=== PATIENT | male | born 1940 | race Caucasian/White ===

== ENCOUNTER 2016-05-08 03:37 | Inpatient (IN) | payer OTHER, BC ==
[~2016-05-08] VITALS: Ht 190.5 cm; Wt 102.9 kg
[~2016-05-08 03:37] MED LIST: COUMADIN3 MG PO; COUMADIN5 MG PO; DOCUSATE SODIU100 MG PO; DUONEB 2.5-0.5 M3 ML PO; FLUORIDE PO; MILK OF MAGNESI10 ML PO; NASAL SPRAY30 M4 ALT NARES; OXYCODONE HCL5 MG PO; ROCEPHIN1000 MG IV; SALINE NASAL SP45 ML BOTH NARES; TRAMADOL HCL50 MG PO; ULTRAM50 MG PO; VANCOMYCIN HCL1 GM IV
[2016-05-08 04:38] LABS: HEMATOCRIT 49.5 % (38.0-50.0); MCH 31.1 PG (29.0-34.0); MCHC 34.1 G/DL (30.0-36.0); MCV 91.2 FL (86-99); MEAN PLAT.VOLUME 10.2 uM^3 (9.0-12.4); PLATELET COUNT 203 K/uL (156-360); RBC DIS.WIDTH-SD 43.2 % (39-53); RED BLOOD COUNT 5.43 M/uL (4.00-5.50)
[2016-05-08 04:49] LABS: CHLORIDE 105 mEq/L (99-109); POTASSIUM 4.1 mEq/L (3.7-5.4); SODIUM 136 mEq/L (136-147)
[2016-05-08 04:50] LABS: GLUCOSE 126 mg/dL (70-99)
[2016-05-08 04:52] LABS: ANION GAP 8 MEQ/L (2-14)
[2016-05-08 04:54] LABS: GFR ESTIMATE (CALCULATED) > 59 mL/min/
[2016-05-08 04:55] LABS: UREA NITROGEN (BUN) 18 mg/dL (9-23)
[2016-05-08 04:58] LABS: TROP-I INTERPRETATION NEGATIVE; TROPONIN-I < 0.01 ng/mL (0.0-0.30)
[2016-05-08 05:13] LABS: PTT 30.1 (25-32)
[2016-05-08 05:14] LABS: TOTAL BILIRUBIN 0.7 mg/dL (0.0-1.0)
[2016-05-08 05:15] LABS: ALKALINE PHOSPHATASE 59 IU/L (3-129)
[2016-05-08 05:18] LABS: DIRECT BILIRUBIN 0.4 mg/dL (0.0-0.3)
[2016-05-08 05:19] LABS: LIPASE 45 U/L (1.0-51.0)
[2016-05-08 05:23] LABS: INTER. NORMALIZED RATIO 1.2
[2016-05-08 07:13] LABS: BILIRUBIN NEGATIVE; BLOOD NEGATIVE; COLOR YELLOW ((YELLOW)); GLUCOSE (STRIP) NEGATIVE; KETONES TRACE; LEUKOCYTES NEGATIVE; NITRITE NEGATIVE; PROTEIN (STRIP) TRACE; SPECIFIC GRAVITY 1.027 (1.000-1.030)
[2016-05-08 07:14] LABS: ADD MIUA? NO; UCUL ADDED? NO
[2016-05-08] MEDS ORDERED: PROPRANOLOL HCL20 MG PO (07:50)
[2016-05-08 16:46] VITALS: BP 157/64
[2016-05-09 00:29] VITALS: BP 181/80
[2016-05-09 06:56] LABS: MEAN PLAT.VOLUME 11.4 uM^3 (9.0-12.4); PLATELET COUNT 231 K/uL (156-360)
[2016-05-09 07:12] LABS: HEMATOCRIT 49.3 % (38.0-50.0); MCH 31.1 PG (29.0-34.0); MCHC 32.9 G/DL (30.0-36.0); MCV 94.6 FL (86-99); RBC DIS.WIDTH-CV 13.4 % (11.8-14.6); RBC DIS.WIDTH-SD 46.3 % (39-53); RED BLOOD COUNT 5.21 M/uL (4.00-5.50); WHITE BLOOD COUNT 10.3 K/uL (4.1-10.2)
[2016-05-09 07:25] LABS: ANION GAP 12 MEQ/L (2-14); CHLORIDE 103 MEQ/L (99-109); GFR ESTIMATE (CALCULATED) > 59 mL/min/; GLUCOSE 101 mg/dL (70-99); POTASSIUM 4.3 MEQ/L (3.7-5.4); SAMPLE HEMOLYSIS CHECK 1; SAMPLE ICTERIC CHECK 0; SAMPLE LIPEMIA CHECK 0; SODIUM 138 MEQ/L (136-147); UREA NITROGEN (BUN) 18 mg/dL (9-23)
[2016-05-09 08:19] LABS: ABS NEUTROPHIL COUNT 5.97; PLAT.SUFFICIENCY ADEQUATE; USER ID STC
[2016-05-09 08:38] VITALS: BP 145/71
[2016-05-09 10:30] LABS: INTERNAL CONTROL VALID? YES
[2016-05-09 13:00] LABS: INFLUENZA A VIRAL ANTIGEN NEGATIVE; INFLUENZA B VIRAL ANTIGEN NEGATIVE
[2016-05-09 14:57] LABS: DELETE MACHINE DIFF? YES
[2016-05-09 16:29] VITALS: BP 146/79
[2016-05-09 23:01] VITALS: BP 148/79
[2016-05-10 06:09] LABS: EOSINOPHIL (%) 0.3 % (0-5); HEMATOCRIT 47.7 % (38.0-50.0); IMMATURE GRANULOCYTE (%) 0.4 % (0.0-0.7); LYMPHOCYTE COUNT 1.5 K/uL (1.0-2.8); MCHC 34.2 G/DL (30.0-36.0); MCV 93.5 FL (86-99); MEAN PLAT.VOLUME 11.3 uM^3 (9.0-12.4); MONOCYTE (%) 6.8 % (3-12); MONOCYTE COUNT 0.8 K/uL (0-0.8); NEUTROPHIL (%) 78.6 % (45-76); NEUTROPHIL COUNT 8.7 K/uL (1.8-6.4); PLATELET COUNT 240 K/uL (156-360); RBC DIS.WIDTH-CV 12.9 % (11.8-14.6); RBC DIS.WIDTH-SD 44.7 % (39-53); WHITE BLOOD COUNT 11.1 K/uL (4.1-10.2)
[2016-05-10 06:39] LABS: ANION GAP 9 MEQ/L (2-14); CHLORIDE 102 MEQ/L (99-109); GFR ESTIMATE (CALCULATED) > 59 mL/min/; GLUCOSE 121 mg/dL (70-99); POTASSIUM 3.9 MEQ/L (3.7-5.4); SAMPLE HEMOLYSIS CHECK 0; SAMPLE ICTERIC CHECK 0; SAMPLE LIPEMIA CHECK 0; SODIUM 137 MEQ/L (136-147); UREA NITROGEN (BUN) 21 mg/dL (9-23)
[2016-05-10 07:59] VITALS: BP 154/83
[2016-05-10 23:27] VITALS: BP 149/76
[2016-05-11 07:11] VITALS: BP 176/85
[2016-05-11] MEDS ORDERED: NICOTINE PATCH1 EAC2 TD (14:23)
[2016-05-11] MEDS ORDERED: DUONEB 2.5-0.5 M3 ML AEROSOL (14:23)
[2016-05-11] MEDS ORDERED: CEFTIN500 MG PO (14:23)
[2016-05-11 15:51] VITALS: BP 169/76
== END 2016-05-11 18:18 | DRG 190 ==
LOC: EME → EDBD 03:37 → EME 03:37 → EDOF 07:36 → 5EAST 07:36
PROVIDERS: Emergency Medicine; Internal Medicine
DX: J44.0 Chronic obstructive pulmonary disease with (acute) lower respiratory infection (principal); J15.9 Unspecified bacterial pneumonia; J44.1 Chronic obstructive pulmonary disease with (acute) exacerbation; J96.91 Respiratory failure, unspecified with hypoxia; E86.0 Dehydration; Z99.81 Dependence on supplemental oxygen; I10 Essential (primary) hypertension; G25.0 Essential tremor; F03.90 Unspecified dementia, unspecified severity, without behavioral disturbance, psychotic disturbance, mood disturbance, and anxiety; R26.2 Difficulty in walking, not elsewhere classified; M19.90 Unspecified osteoarthritis, unspecified site; F17.210 Nicotine dependence, cigarettes, uncomplicated; Z85.46 Personal history of malignant neoplasm of prostate
CPT/HCPCS: 71020; 80048; 80076; 81003; 83605; 83690; 83880; 84484; 85025; 85027; 85610; 85730; 87040; 87449; 87502; 93005; 94640; 94640 76; 94760; 94799; 99202; 99281; 99285; J0456; J0696; J1650; J1956; J2405; J7040; J7050